=== PATIENT | female | born 1990 | race Caucasian/White ===

== ENCOUNTER 2021-04-03 20:57 | Emergency (ER) | payer MEDICAID ==
[2021-04-03] MEDS ORDERED: GI Cocktail Oral Solution 30 ML PO ONE (21:47)
--- NOTE | 2021-04-03 21:52 | EDM.PDOC ---
ED HPI GENERAL MEDICAL PROBLEM - General Chief Complaint: Abdominal Pain Stated Complaint: SUSPECTED GALL BLADDER ATTACK Time Seen by Provider: 04/03/21 21:30 Source of Information: Reports: Patient History Limitations: Reports: No Limitations - History of Present Illness INITIAL COMMENTS - FREE TEXT/NARRATIVE: Genie is a 30 year old female who presents to ER with complaints of mid upper abdominal pain. STates started having a throbbing pit in her stomach about 5 pm, has vomited 5 times since that time. Now just nauseated and retching bile at this point. Has a twisting like pain in the midepigastric area. No hematemesis. No diarrhea or blood in her stools. No urinary complaints. No fevers. Relates had episode of pain like this back in July when was . Ultrasound at that time did show gallstones. Has not had any issues or pain since that time. Did not eat anything unusual today, mostly just rice and noodles. Onset: Today, Sudden Duration: Hour(s):, Constant Location: Reports: Abdomen Quality: Reports: Ache Severity: Moderate Improves with: Reports: None Associated Symptoms: Reports: Nausea/Vomiting. Denies: Confusion, Chest Pain, Cough, Fever/Chills, Loss of Appetite, Shortness of Breath Past Medical History Gastrointestinal History: Reports: Cholelithiasis Social & Family History - Tobacco Use Tobacco Use Status *Q: Unknown Ever Used Tobacco ED ROS GENERAL - Review of Systems Review Of Systems: See Below Constitutional: Denies: Fever, Chills, Malaise, Weakness, Fatigue, Decreased Appetite HEENT: Denies: Ear Pain, Sinus Problem, Throat Pain, Vertigo Respiratory: Denies: Shortness of Breath Cardiovascular: Denies: Chest Pain, Edema, Lightheadedness Endocrine: Denies: Fatigue GI/Abdominal: Reports: Abdominal Pain, Nausea, Vomiting. Denies: Constipation, Diarrhea, Hematemesis, Hematochezia, Melena : Reports: No Symptoms Musculoskeletal: Reports: No Symptoms Skin: Reports: No Symptoms Neurological: Reports: No Symptoms ED EXAM, GI/ABD - Physical Exam Exam: See Below Exam Limited By: No Limitations General Appearance: Alert, WD/WN, Mild Distress Ears: Normal External Exam, Normal TMs Nose: Normal Inspection, Normal Mucosa, No Blood Throat/Mouth: Normal Inspection, Normal Oropharynx Head: Normocephalic Neck: Normal Inspection, Supple, Non-Tender Respiratory/Chest: No Respiratory Distress, Lungs Clear, Normal Breath Sounds Cardiovascular: Regular Rate, Rhythm GI/Abdominal Exam: Normal Bowel Sounds, Soft, Tender (midepigastric area) Extremities: No Pedal Edema, Other (multiple scabs noted to legs. Admits has an anxiety issue and picks/scratches) Neurological: Alert, Oriented Skin Exam: Warm, Dry Course - Orders/Labs/Meds Orders: Active Orders 24 hr Category Date Time Status Abdomen 2V AP Flat Upright [CR] Stat Exams 04/03/21 21:45 Ordered UA RFX CHASIDY AND CULT IF INDIC [URIN] Stat Lab 04/03/21 21:45 Stop Req Urine HCG [HCG QUALITATIVE,URINE] [URCHEM] Stat Lab 04/03/21 21:45 Stop Req Labs: Laboratory Tests 04/03/21 04/03/21 Range/Units 21:46 21:46 WBC 9.1 (4.0-10.0) x10^3/uL RBC 4.46 (4.00-5.50) x10^6/uL Hgb 12.5 (12.0-16.0) g/dL Hct 36.9 (33.0-47.0) % MCV 82.7 (78.0-93.0) fL MCH 28.0 (26.0-32.0) pg MCHC 33.9 (32.0-36.0) g/dL RDW Coeff of Teressa 13.1 (10.0-15.0) % Plt Count 282 (130-400) x10^3/uL Neut % (Auto) 72.6 (50.0-80.0) % Lymph % (Auto) 19.5 L (25.0-50.0) % [place] % (Auto) 6.6 (2.0-11.0) % Eos % (Auto) 1.2 (0.0-4.0) % Baso % (Auto) 0.1 L (0.2-1.2) % Sodium 139 (136-145) mmol/L Potassium 3.9 (3.5-5.1) mmol/L Chloride 101 (98-107) mmol/L Carbon Dioxide 27 (21-32) mmol/L Anion Gap 14.9 (5-15) mmol/L BUN 19 H (7-18) mg/dL Creatinine 1.1 H (0.55-1.02) mg/dL Est Cr Clr Drug Dosing TNP Estimated GFR (MDRD) 58 Glucose 113 H (70-99) mg/dL Calcium 8.8 (8.5-10.1) mg/dL Corrected Calcium 8.9 (8.5-10.1) mg/dL Total Bilirubin 0.4 (0.2-1.0) mg/dL AST 20 (15-37) U/L ALT 21 (14-59) U/L Alkaline Phosphatase 79 (46-116) U/L C-Reactive Protein 0.4 (<=0.9) mg/dL Total Protein 7.9 (6.4-8.2) g/dL Albumin 3.9 (3.4-5.0) g/dL Globulin 4.0 Albumin/Globulin Ratio 0.98 Amylase 129 H (25-115) U/L Lipase 89 (73-393) U/L Meds: Medications Discontinued Medications Generic Name Dose Route Start Last Admin Trade Name Lukeq PRN Reason Stop Dose Admin Al Hydroxide/Mg Hydroxide 30 ml 04/03/21 21:47 04/03/21 22:00 Gi Cocktail Oral Solution 30 Ml PO 04/03/21 21:48 30 ml ONETIME ONE Administration Ketorolac Tromethamine 30 mg 04/03/21 22:24 04/03/21 22:53 Ketorolac 30 Mg/Ml Sdv IVPUSH 04/03/21 22:25 30 mg ONETIME ONE Administration - Re-Assessments/Exams Free Text/Narrative Re-Assessment/Exam: 04/03/21 2220- Minimal relief with GI cocktail. Will proceed with Toradol injection. 2300- Patient's labs show mild elevation in amylase, otherwise unremarkable. Does have relief of her pain. Discussed will need to talk to her primary care provider for referral to surgeon. Likely will not need an additional ultrasound as had one positive for gallstones in July. Last menses was one week ago, had taken a test prior that was negative. Will not obtain hcg tonight. Departure - Departure Time of Disposition: 23:05 Disposition: Home, Self-Care 01 Condition: Good Clinical Impression: Abdominal pain, Cholelithiasis - Discharge Information *PRESCRIPTION DRUG MONITORING PROGRAM REVIEWED*: No *COPY OF PRESCRIPTION DRUG MONITORING REPORT IN PATIENT GWENDOLYN: No Instructions: Cholelithiasis, Abdominal Pain, Adult Referrals: Gillian Crabtree, [facility] [Primary Care Provider] - Forms: ED Department Discharge Additional Instructions: 1. Push fluids 2. [place] diet 3. Hydrocodone 1 tab every 6 hours as needed for pain 4. Contact primary care provider in am for referral to surgeon or any additional tests that may be needed 5. Call with any questions or concerns. - My Orders Last 24 Hours: My Active Orders 04/03/21 21:45 Abdomen 2V AP Flat Upright [CR] Stat UA RFX CHASIDY AND CULT IF INDIC [URIN] Stat Urine HCG [HCG QUALITATIVE,URINE] [URCHEM] Stat - Assessment/Plan Last 24 Hours: My Active Orders 04/03/21 21:45 Abdomen 2V AP Flat Upright [CR] Stat UA RFX CHASIDY AND CULT IF INDIC [URIN] Stat Urine HCG [HCG QUALITATIVE,URINE] [URCHEM] Stat
[2021-04-03 22:14] LABS: CHLORIDE,CL 101 mmol/L (98-107); SODIUM,NA 139 mmol/L (136-145)
[2021-04-03 22:21] LABS: ANION GAP 14.9 mmol/L (5-15)
[2021-04-03] MEDS ORDERED: Ketorolac 30 MG/ML SDV IVPUSH ONE (22:24)
[2021-04-03] MEDS ORDERED: Take Home: Acetaminophen/HYDROcodone 325-5 MG, 5 Tab Pack PO ONE (23:05)
== END 2021-04-03 23:30 | disposition home or self-care (01) ==
LOC: VM.ED 20:57
DX: K80.20 Calculus of gallbladder without cholecystitis without obstruction (principal)
CPT/HCPCS: 36415; 80053; 82150; 83690; 85025; 86140; 96374; 99284; 99284-25; A9270-GY; J1885